=== PATIENT | male | born 1990 | race Caucasian/White ===

== ENCOUNTER 2023-05-24 16:51 | Observation (INO) | payer OTHER ==
[~2023-05-24] VITALS: Ht 182.9 cm; Wt 68.0 kg
[2023-05-24] MEDS: NS IV 1000 ML 1,000 ML IV SCH ×2 (17:05→22:09)
[2023-05-24] MEDS ORDERED: LACTATED RINGERS 1,000 ML 1,000 ML IV ONE (17:11)
--- NOTE | 2023-05-24 17:16 | ED General ---
General Chief Complaint: Allergic Reaction Stated Complaint: NUMEROUS BEE STINGS/NAUSEA/TONGUE SWELLING Nursing Triage Note: PT TO RM 7 BY WC ACCOMPANIED BY FATHER WITH CC OF ALLERGIC REACTION. 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 PT A&OX4 Source of Information: Patient, Family Exam Limitations: No Limitations (DARYL VELAZQUEZ MD) History of Present Illness Date Seen by Provider: May 24, 2023 Time Seen by Provider: 16:55 Initial Comments Patient is a 33-year-old male who presents to the emergency room with a chief complaint of multiple bee stings. 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 He has had a few stings in the past but never had a reaction. His father found him on the ground outside his truck. He arrives to the emergency room alert, oriented hypotensive in the 70s. Tachycardic 130s. He is not hypoxic on room air, he exhibits no wheezing. He does not feel like his mouth or tongue is swollen. He takes no daily medications. No allergies to medications that he is aware of. Non-smoker, nondrinker. Denies chest pain currently. Timing/Duration: 1/2 Hour Severity: Severe Associated Systoms: Malaise, Syncope, Weakness (DARYL VELAZQUEZ MD) Allergies and Home Medications Allergies Coded Allergies: No Known Drug Allergies (Unverified , 05/24/23) Patient Home Medication List Home Medication List Reviewed: Yes (DARYL VELAZQUEZ MD) No Active Prescriptions or Reported Meds Review of Systems Review of Systems Constitutional: see HPI EENTM: mouth swelling Respiratory: no symptoms reported Cardiovascular: syncope Gastrointestinal: no symptoms reported Genitourinary: no symptoms reported Musculoskeletal: no symptoms reported Skin: other (redness/flushed/pain with multiple TNTC bee stings/stingers in skin) Psychiatric/Neurological: Anxiety, Weakness (DARYL VELAZQUEZ MD) All Other Systems Reviewed Negative Unless Noted: Yes (DARYL VELAZQUEZ MD) Past Oxzlunj-Uulylp-Tawvik Hx Patient Social History Tobacco Use?: No Substance use?: No Alcohol Use?: No Pt feels they are or have been: No (DARYL VELAZQUEZ MD) Past Medical History Surgery/Hospitalization HX: DENIES (DARYL VELAZQUEZ MD) Physical Exam Vital Signs Vital Signs - First Documented 05/24/23 16:54 Temp 36.6 Pulse 137 Resp 15 B/P (MAP) 83/50 (61) Pulse Ox 96 O2 Delivery Room Air (LUZ,COOPER K DO) Vital Signs Capillary Refill : Less Than 3 Seconds (DARYL VELAZQUEZ MD) Height, Weight, BMI Height: '" Weight: lbs. oz. kg; 20.00 BMI Method: General Appearance: WD/WN, Mild Distress Eyes: Bilateral Eye Normal Inspection, Bilateral Eye PERRL, Bilateral Eye EOMI HEENT: Pharynx Normal, Other (diffuse facial (mild) edema, flushed with swelling to eye lids and mildly to lips. Face and ears are covered in bee stingers, as is scalp, neck and upper torso; left ear canal with bee lodged in it - removed with forceps - intact. residula erythema noted in canal) Neck: Supple Respiratory: Lungs Clear, Normal Breath Sounds, No Accessory Muscle Use, No Respiratory Distress Cardiovascular: Regular Rate, Rhythm, Normal Peripheral Pulses (1+ radial pulses bilaterally), Tachycardia (130's) Gastrointestinal: Soft Extremity: Normal Range of Motion Neurologic/Psychiatric: Alert, Oriented x3, No Motor/Sensory Deficits, Normal Mood/Affect, rest room attendant II-XII Norm as Tested Skin: Cool, Damp ((patient had been doused with water prior to arrival)), Rash (erythema to head/face/neck and upper chest; TNTC "stingers" lodged in the skin) (DARYL VELAZQUEZ MD) Procedures/Interventions Ear : Ear Location: Left Foreign Body Removal: FB in the Ear Canal Use of: Forceps (DARYL VELAZQUEZ MD) Progress/Results/Core Measures Suspected Sepsis SIRS Temperature: Pulse: 137 Respiratory Rate: 15 Laboratory Tests 05/24/23 17:08: White Blood Count 11.5H Blood Pressure 83 /50 Mean: 61 Laboratory Tests 05/24/23 17:08: Creatinine 1.45H, Platelet Count 235, Total Bilirubin 0.6 (DARYL VELAZQUEZ MD) Results/Orders Lab Results Laboratory Tests Test 05/24/23 17:08 Range/Units White Blood Count 11.5 H 4.3-11.0 10^3/uL Red Blood Count 5.23 4.30-5.52 10^6/uL Hemoglobin 15.8 13.3-17.7 g/dL Hematocrit 47 40-54 % Mean Corpuscular Volume 90 80-99 fL Mean Corpuscular Hemoglobin 30 25-34 pg Mean Corpuscular Hemoglobin Concent 34 32-36 g/dL Red Cell Distribution Width 12.4 10.0-14.5 % Platelet Count 235 130-400 10^3/uL Mean Platelet Volume 9.9 9.0-12.2 fL Immature Granulocyte % (Auto) 1 % Neutrophils (%) (Auto) 51 42-75 % Lymphocytes (%) (Auto) 41 12-44 % Monocytes (%) (Auto) 5 0-12 % Eosinophils (%) (Auto) 2 0-10 % Basophils (%) (Auto) 0 0-10 % Neutrophils # (Auto) 5.8 1.8-7.8 10^3/uL Lymphocytes # (Auto) 4.8 H 1.0-4.0 10^3/uL Monocytes # (Auto) 0.5 0.0-1.0 10^3/uL Eosinophils # (Auto) 0.3 0.0-0.3 10^3/uL Basophils # (Auto) 0.0 0.0-0.1 10^3/uL Immature Granulocyte # (Auto) 0.1 0.0-0.1 10^3/uL Sodium Level 141 135-145 MMOL/L Potassium Level 2.8 L 3.6-5.0 MMOL/L Chloride Level 106 98-107 MMOL/L Carbon Dioxide Level 13 L 21-32 MMOL/L Anion Gap 22 H 5-14 MMOL/L Blood Urea Nitrogen 18 7-18 MG/DL Creatinine 1.45 H 0.60-1.30 MG/DL Estimat Glomerular Filtration Rate 66 BUN/Creatinine Ratio 12 Glucose Level 181 H 70-105 MG/DL Calcium Level 9.2 8.5-10.1 MG/DL Corrected Calcium 8.8 8.5-10.1 MG/DL Total Bilirubin 0.6 0.1-1.0 MG/DL Aspartate Amino Transf (AST/SGOT) 30 5-34 U/L Alanine Aminotransferase (ALT/SGPT) 20 0-55 U/L Alkaline Phosphatase 62 40-136 U/L Total Creatine Kinase 110 30-200 U/L Total Protein 7.1 6.4-8.2 GM/DL Albumin 4.5 3.2-4.5 GM/DL (COOPER ESCOBAR DO) Medications Given in ED Current Medications Medications Dose Ordered Sig/Xenia Route Start Time Stop Time Status Last Admin Dose Admin Acetaminophen 1,000 mg ONCE ONCE PO 05/24/23 18:30 05/24/23 18:31 DC 05/24/23 18:25 1,000 MG Promethazine HCl 25 mg ONCE ONCE IVP 05/24/23 18:30 05/24/23 18:31 DC 05/24/23 18:24 25 MG (COOPER ESCOBAR DO) Vital Signs/I&O 05/24/23 05/24/23 16:54 20:38 Temp 36.6 Pulse 137 89 Resp 15 18 B/P (MAP) 83/50 (61) 124/81 Pulse Ox 96 97 O2 Delivery Room Air Room Air (COOPER ESOCBAR DO) Vital Signs/I&O Capillary Refill : Less Than 3 Seconds (DARYL VELAZQUEZ MD) Blood Pressure Mean: 61 Progress Note : Time: 18:00 Progress Note Patient re-evaluated - complaining of pain and is thirsty. Declines any narcotic pain meds or tylenol. Still quite flushed. HR down to 110, BP 99/67. Low clinical threshhold for re-dosing epi. His Bp was in the normal range about 20 minutes ago - SBP of 140. Patient seen and evaluated by me - Anaphylaxis identified immediately with history bee swarm and tachycardia and low BP in the 70's systolic. 0.3mg Epi given minutes after arrival while IV access was established and fluids hung - NS. Patient maintained LOC throughout. Took about 10-15 minutes for BP to start to recover. Eval today includes Physical exam, basic labs with coags - CBC, CMP. Exam as documented - multiple TNTC stings with diffuse erythema, tachycardia and hypotension. Did remove a bee from the patient's left ear canal. Also extensive "debridement" of stingers from the patient's head and neck and upper torso. Normal neuro exam. Patient treated with the subQ epi, IV fluids, zofran and tylenol. Monitored closely throughout with serial re-evaluations every 15 min. At one point he did start to drop his BP again into the low 90's systolic. Consideration for repeat epi - however he improved on his own. Labs independently reviewed and interpreted by me. He did have slightly low potassium at 2.9 with mild elevation in creat 1.45. Discussed observation admission with the patient regarding abnormal labs and concern due to the extent of stings and possibility for biphasic response of anaphylaxis. PAtient agreeable. Discussed case with Dr Sullivan - who agrees to admission. (DARYL VELAZQUEZ MD) Critical Care Note Critical Care Start Time: 16:55 Stop Time: 18:13 Total Time (minutes) 45 min critical care time in the initial eval and subsequent re-evaluations of this patient with anaphylaxis to bees. I was at the bedside initially for 25 min continuously. Supervising medication administration - IM epi, fluids, and other supportive meds. Time includes also review and interpretation of labs; discussion with family and discussion with admitting provider. (DARYL VELAZQUEZ MD) Departure Communication (Admissions) Time/Spoke to Admitting Phy: 18:[address] Sullivan - Hospitalist (DARYL VELAZQUEZ MD) Impression Primary Impression: Bee sting-induced anaphylaxis Qualified Codes: T63.441A - Toxic effect of venom of bees, accidental (unintentional), initial encounter Additional Impressions: Anaphylaxis Qualified Codes: T78.2XXA - Anaphylactic shock, unspecified, initial encounter Hypokalemia CHARLETTE (acute kidney injury) MULTIPLE BEE STINGS Disposition: ADMITTED INPATIENT Condition: Stable Admissions Decision to Admit Reason: Admit from ER (General) Decision to Admit/Date: May 24, 2023 Time/Decision to Admit Time: 18:16 (DARYL VELAZQUEZ MD) Departure-Patient Inst. Referrals: NO,LOCAL PHYSICIAN (PCP) Primary Care Physician Scripts No Active Prescriptions or Reported Meds DARYL VELAZQUEZ MD May 24, 2023 17:16 COOPER ESCOBAR DO May 24, 2023 18:37
[2023-05-24 17:24] LABS: BASOPHILS % (AUTO) 0 % (0-10); EOSINOPHILS # (AUTO) 0.3 10^3/uL (0.0-0.3); EOSINOPHILS % (AUTO) 2 % (0-10); HEMATOCRIT 47 % (40-54); HEMOGLOBIN 15.8 g/dL (13.3-17.7); LYMPHOCYTES # (AUTO) 4.8 10^3/uL (1.0-4.0); LYMPHOCYTES % (AUTO) 41 % (12-44); MEAN CORPUSCULAR HEMOGLOBIN 30 pg (25-34); MEAN CORPUSCULAR HGB CONC 34 g/dL (32-36); MEAN CORPUSCULAR VOLUME 90 fL (80-99); MEAN PLATELET VOLUME 9.9 fL (9.0-12.2); MONOCYTES # (AUTO) 0.5 10^3/uL (0.0-1.0); MONOCYTES % (AUTO) 5 % (0-12); NEUTROPHILS # (AUTO) 5.8 10^3/uL (1.8-7.8); NEUTROPHILS % (AUTO) 51 % (42-75); PLATELET COUNT 235 10^3/uL (130-400); WHITE BLOOD COUNT 11.5 10^3/uL (4.3-11.0)
[2023-05-24] MEDS ORDERED: methylPREDNISolone INJ 125 MG VIAL IVP ONE (17:30)
[2023-05-24] MEDS ORDERED: LACTATED RINGERS 1,000 ML 1,000 ML IV SCH (17:30)
[2023-05-24] MEDS ORDERED: ONDANSETRON INJECTION 4 MG/2 ML (SDV) IVP ONE (17:30)
[2023-05-24] MEDS ORDERED: diphenhydrAMINE INJ 50 MG/ML VIAL IVP ONE (17:30)
[2023-05-24] MEDS ORDERED: FAMOTIDINE INJ 20MG/2ML VIAL IVP ONE (17:30)
[2023-05-24 17:45] LABS: ALBUMIN 4.5 GM/DL (3.2-4.5); BILIRUBIN,TOTAL 0.6 MG/DL (0.1-1.0); CALCIUM 9.2 MG/DL (8.5-10.1); CREATININE SERUM 1.45 MG/DL (0.60-1.30); POTASSIUM 2.8 MMOL/L (3.6-5.0); TOTAL PROTEIN 7.1 GM/DL (6.4-8.2)
[2023-05-24] MEDS ORDERED: EPINEPHrine (ADULT) 0.3 MG/0.3 ML auto-inject ONE (18:18)
[2023-05-24] MEDS ORDERED: ACETAMINOPHEN 500 MG TABLET PO ONE (18:30)
[2023-05-24] MEDS ORDERED: EPINEPHrine (ADULT) 0.3 MG/0.3 ML auto-inject IM ONE (18:30)
[2023-05-24] MEDS ORDERED: PROMETHAZINE INJ 25 MG/ML VIAL IVP ONE (18:30)
[2023-05-24 20:40] VITALS: BP 127/96
[2023-05-24 21:00] VITALS: BP 124/84
[2023-05-24] MEDS ORDERED: MELATONIN 3 MG TABLET PO PRN (21:15)
[2023-05-24] MEDS ORDERED: diphenhydrAMINE INJ 50 MG/ML VIAL IVP PRN (21:15)
[2023-05-24] MEDS ORDERED: CALCIUM CARBONATE 500 MG CHEW TABLET PO PRN (21:15)
[2023-05-24] MEDS ORDERED: EPINEPHrine (ADULT) 0.3 MG/0.3 ML auto-inject IM PRN (21:15)
[2023-05-24] MEDS ORDERED: ANTACID SUSPENSION 30 ML UDC PO PRN (21:15)
[2023-05-24] MEDS ORDERED: ONDANSETRON INJECTION 4 MG/2 ML (SDV) IV PRN (21:15)
[2023-05-24 21:25] VITALS: BP 127/96
[2023-05-24] MEDS ORDERED: RT-ALBUTEROL SULF 2.5 MG/3 ML PRE-MIX VIAL INH PRN (21:45)
[2023-05-24 22:00] VITALS: BP 113/75
[2023-05-24] MEDS: methylPREDNISolone INJ 125 MG VIAL IVP SCH (23:27)
[2023-05-25] VITALS: BP 114/77
[2023-05-25 03:46] VITALS: BP 109/63
[2023-05-25 04:45] LABS: HEMATOCRIT 44 % (40-54); HEMOGLOBIN 14.9 g/dL (13.3-17.7); MEAN CORPUSCULAR HEMOGLOBIN 30 pg (25-34); MEAN CORPUSCULAR HGB CONC 34 g/dL (32-36); MEAN CORPUSCULAR VOLUME 89 fL (80-99); MEAN PLATELET VOLUME 10.5 fL (9.0-12.2); PLATELET COUNT 171 10^3/uL (130-400); WHITE BLOOD COUNT 15.1 10^3/uL (4.3-11.0)
[2023-05-25 05:03] LABS: ALBUMIN 3.8 GM/DL (3.2-4.5); CALCIUM 8.4 MG/DL (8.5-10.1); CREATININE SERUM 0.98 MG/DL (0.60-1.30); POTASSIUM 4.2 MMOL/L (3.6-5.0); TOTAL PROTEIN 5.9 GM/DL (6.4-8.2)
[2023-05-25] MEDS: methylPREDNISolone INJ 125 MG VIAL IVP SCH (06:12)
[2023-05-25 07:30] VITALS: BP 127/84
[2023-05-25] MEDS ORDERED: FAMOTIDINE INJ 20MG/2ML VIAL IVP SCH (09:00)
--- NOTE | 2023-05-25 10:28 | Short Stay Summary ---
BOO SILVER 05/25/23 1028: History of Present Illness History of Present Illness Reason for visit/HPI 33yo male presented to the ED on 05/24 with multiple bee stings from the shoulders and up. 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 He stated that he felt like he "was burning" from the stings and so his dad doused him in water. Pt has never had a reaction like this before. Pt denies wheezing, swollen mouth/tongue, and chest pain. When he presented to the ED, he was tachycardic and hypotensive. Today, pt states that he is feeling much better without shortness of breath or chest pain. Pt does state that neck is stiff and face/lips are mildly swollen, but better than yesterday. Date of Admission May 24, 2023 at 20:38 Date of Discharge 05/25/23 Time Seen by Provider: 08:15 Attending Physician Lisa Quinones MD Admitting Physician Admitting Physician: Wendy Sullivan MD Attending Physician: Marlee Cottrell DO Consult Allergies and Home Medications Allergies Coded Allergies: No Known Drug Allergies (Unverified , 05/24/23) Patient Home Medication List Home Medication List Reviewed: Yes No Active Prescriptions or Reported Meds Past Upnelat-Rfdpka-Dsoszk Hx Patient Social History Marrital Status: Number of Children: 5 Number of living children: 5 Employed/Student: employed Alcohol Use?: No Pt feels they are or have been: No Review of Systems Constitutional: No chills, No dizziness, No fever, No weakness Respiratory: No cough, No dyspnea on exertion, No short of breath, No wheezing Cardiovascular: No chest pain; edema (mild swelling of lips and face) Musculoskeletal: muscle stiffness (neck muscles) Physical Exam Vital Signs Vital Signs - First Documented 05/24/23 05/24/23 16:54 21:25 Temp 36.6 Pulse 137 Resp 15 B/P (MAP) 83/50 (61) Pulse Ox 96 O2 Delivery Room Air FiO2 21 Capillary Refill : Less Than 3 Seconds Height, Weight, BMI Height: '" Weight: lbs. oz. kg; 20.32 BMI Method: General Appearance: No Apparent Distress, WD/WN Neck: Limited Range of Motion Respiratory: Lungs Clear, Normal Breath Sounds, No Accessory Muscle Use, No Respiratory Distress Cardiovascular: Regular Rate, Rhythm, No Gallop, No Murmur Skin: Erythema (posterior neck with lesions noted from bee stings) Short Stay Diagnosis Discharge Diagnosis-Short Stay Admission Diagnosis: Anaphylaxis CHARLETTE Hypokalemia Final Discharge Diagnosis: Anaphylaxis Conclusion Labs Laboratory Tests 05/24/23 17:08: White Blood Count 11.5H, Red Blood Count 5.23, Hemoglobin 15.8, Hematocrit 47, Mean Corpuscular Volume 90, Mean Corpuscular Hemoglobin 30, Mean Corpuscular Hemoglobin Concent 34, Red Cell Distribution Width 12.4, Platelet Count 235, Mean Platelet Volume 9.9, Immature Granulocyte % (Auto) 1, Neutrophils (%) (Auto) 51, Lymphocytes (%) (Auto) 41, Monocytes (%) (Auto) 5, Eosinophils (%) (Auto) 2, Basophils (%) (Auto) 0, Neutrophils # (Auto) 5.8, Lymphocytes # (Auto) 4.8H, Monocytes # (Auto) 0.5, Eosinophils # (Auto) 0.3, Basophils # (Auto) 0.0, Immature Granulocyte # (Auto) 0.1, Sodium Level 141, Potassium Level 2.8L, Chloride Level 106, Carbon Dioxide Level 13L, Anion Gap 22H, Blood Urea Nitrogen 18, Creatinine 1.45H, Estimat Glomerular Filtration Rate 66, BUN/Creatinine Ratio 12, Glucose Level 181H, Calcium Level 9.2, Corrected Calcium 8.8, Total Bilirubin 0.6, Aspartate Amino Transf (AST/SGOT) 30, Alanine Aminotransferase (ALT/SGPT) 20, Alkaline Phosphatase 62, Total Creatine Kinase 110, Total Protein 7.1, Albumin 4.5 05/25/23 03:30: White Blood Count 15.1H, Red Blood Count 4.95, Hemoglobin 14.9, Hematocrit 44, Mean Corpuscular Volume 89, Mean Corpuscular Hemoglobin 30, Mean Corpuscular Hemoglobin Concent 34, Red Cell Distribution Width 13.2, Platelet Count 171, Mean Platelet Volume 10.5, Sodium Level 138, Potassium Level 4.2, Chloride Level 108H, Carbon Dioxide Level 23, Anion Gap 7, Blood Urea Nitrogen 14, Creatinine 0.98, Estimat Glomerular Filtration Rate 106, BUN/Creatinine Ratio 14, Glucose Level 163H, Calcium Level 8.4L, Corrected Calcium 8.6, Total Bilirubin 1.0, Aspartate Amino Transf (AST/SGOT) 70H, Alanine Aminotransferase (ALT/SGPT) 56H, Alkaline Phosphatase 45, Total Creatine Kinase 255H, Total Protein 5.9L, Albumin 3.8 Conclusion/Plan Discharge home with no new meds and follow up with PCP as needed MARLEE COTTRELL DO 05/26/23 0512: History of Present Illness History of Present Illness Reason for visit/HPI CC: Multiple bee stings with anaphylaxis with CHARLETTE HPI: This is a 33yoWM clinic patient of Dr Quinones who presented to the ER af ter bees penetrated his protective suit and stung him hundreds of times. His BP was low on ER admit prompting IVF and Epinephrine administration. CHARLETTE dx and placed on IVF and he was admitted for obs. Date of Admission 05/24/23 Date of Discharge 05/25/23 Time Seen by Provider: 10:00 Allergies and Home Medications Allergies Coded Allergies: No Known Drug Allergies (Unverified , 05/24/23) Patient Home Medication List No Active Prescriptions or Reported Meds Past Dxroqfg-Jpyeod-Jxlyjj Hx Patient Social History Marrital Status: Employed/Student: employed Smoking Status: Never a Smoker Review of Systems Constitutional: see HPI Physical Exam General Appearance: No Apparent Distress, WD/WN Eyes: Bilateral Eye Normal Inspection, Bilateral Eye PERRL, Bilateral Eye EOMI HEENT: PERRL/EOMI, TMs Normal, Normal ENT Inspection, Pharynx Normal Neck: Full Range of Motion, Normal Inspection, Non Tender, Supple, Carotid Bruit Respiratory: Chest Non Tender, Lungs Clear, Normal Breath Sounds, No Accessory Muscle Use, No Respiratory Distress Cardiovascular: Regular Rate, Rhythm, No Edema, No Gallop, No JVD, No Murmur, Normal Peripheral Pulses Gastrointestinal: Normal Bowel Sounds, No Organomegaly, No Pulsatile Mass, Non Tender, Soft Back: Normal Inspection, No CVA Tenderness, No Vertebral Tenderness Extremity: Normal Capillary Refill, Normal Inspection, Normal Range of Motion, Non Tender, No Calf Tenderness, No Pedal Edema Neurologic/Psychiatric: Alert, Oriented x3, No Motor/Sensory Deficits, Normal Mood/Affect Skin: Normal Color, Warm/Dry Lymphatic: No Adenopathy Short Stay Diagnosis Discharge Diagnosis-Short Stay Admission Diagnosis: Multiple bee stings with anaphylactic allergic reaction CHARLETTE Final Discharge Diagnosis: Multiple bee stings with anaphylactic allergic reaction CHARLETTE Conclusion Conclusion/Plan DC home Supervisory-Addendum Brief Verification & Attestation Participated in pt care: history, MDM, physical Personally performed: exam, history, MDM, supervision of care Care discussed with: Medical Student Procedures: n/a Results interpretation: Verified all documentation Verification and Attestation of Medical Student E/M Service A medical student performed and documented this service in my presence. I reviewed and verified all information documented by the medical student and made modifications to such information, when appropriate. I personally performed the physical exam and medical decision making. Marlee Cottrell, May 26, 2023,05:10 BOO SILVER May 25, 2023 10:28 MARLEE COTTRELL DO May 26, 2023 05:12
[2023-05-25 11:38] VITALS: BP 127/84
== END 2023-05-25 11:00 | disposition home or self-care (01) ==
LOC: EDUNIT# 16:51 → ER 16:55 → CSD 20:38
PROVIDERS: ADMIT Family Medicine; ATTEND Internal Medicine
DX: T78.2XXA Anaphylactic shock, unspecified, initial encounter (principal); T63.441A Toxic effect of venom of bees, accidental (unintentional), initial encounter; N17.9 Acute kidney failure, unspecified; E87.6 Hypokalemia
CPT/HCPCS: 80053 ×2; 82550 ×2; 85025; 85027; 96376 ×2; 99284; G0378; 36415